=== PATIENT | female | born 1990 | race African-American/Black ===

== ENCOUNTER 2022-09-12 06:16 | Emergency (ER) | payer MEDICAID ==
[~2022-09-12] VITALS: Ht 154.9 cm; Wt 58.1 kg
[2022-09-12 07:07] LABS: BASOPHILS % 0.6 % (0.0-2.0); HEMATOCRIT. 40.1 % (36.0-48.0); HEMOGLOBIN. 13.3 g/dL (12.0-16.0); LYMPHOCYTES % 15.1 % (20.0-50.0); MEAN CORPUSCULAR HEMOGLOBIN 28.5 pg (28.0-32.0); MEAN CORPUSCULAR VOLUME 86.1 fL (81.0-99.0); MEAN PLATELET VOLUME 8.9 fl (7.4-10.4); MONOCYTES % 6.9 % (2.0-8.0); NEUTROPHILS % 75.4 % (40.0-76.0); PLATELET 273 x1000/uL (130-400); RED BLOOD CELL COUNT 4.66 mill/uL (4.2-5.4); RED CELL DISTRIBUTION WIDTH 14.1 % (11.6-14.6)
[2022-09-12 07:17] LABS: CHLORIDE 111 mEq/L (98-107)
[2022-09-12 07:27] LABS: HCG SCREEN POSITIVE
[2022-09-12 08:12] LABS: CLARITY URINE CLEAR (CLEAR); COLOR URINE YELLOW (YELLOW); KETONES URINE NEGATIVE (NEGATIVE); LEUKOCYTE ESTERASE URINE 2+ (NEGATIVE); NITRITE URINE POSITIVE (NEGATIVE); OCCULT BLOOD URINE TRACE (NEGATIVE); PH URINE 6.5 (4.5-8.0); PROTEIN URINE NEGATIVE (NEGATIVE)
[2022-09-12] MEDS ORDERED: CEPHALEXIN 250MG CAPSULE PO ONE (08:45)
[2022-09-12] MEDS ORDERED: CEPH500T MT (11:29)
[2022-09-12 11:43] VITALS: BP 144/92
== END 2022-09-12 11:49 | disposition home or self-care (01) ==
LOC: ER 06:16
DX: N30.90 Cystitis, unspecified without hematuria (principal)
CPT/HCPCS: 36415; 76830; 76856; 80053; 81003; 83690; 84702; 84703; 85025; 86850; 86900; 86901; 99284; Z7610

== ENCOUNTER 2022-09-14 10:53 | Emergency (ER) | payer MEDICAID ==
[~2022-09-14] VITALS: Ht 154.9 cm; Wt 68.0 kg
[~2022-09-14 10:53] MED LIST: CEPH500T MT
[2022-09-14 11:12] VITALS: BP 146/90
[2022-09-14 11:30] LABS: BASOPHILS % 0.9 % (0.0-2.0); EOSINOPHILS % 2.2 % (0.0-5.0); HEMOGLOBIN. 13.2 g/dL (12.0-16.0); LYMPHOCYTES % 23.9 % (20.0-50.0); MEAN CORPUSCULAR HEMOGLOBIN 28.9 pg (28.0-32.0); MEAN CORPUSCULAR VOLUME 85.6 fL (81.0-99.0); PLATELET 275 x1000/uL (130-400); RED BLOOD CELL COUNT 4.56 mill/uL (4.2-5.4); RED CELL DISTRIBUTION WIDTH 13.7 % (11.6-14.6)
[2022-09-14 11:40] LABS: CHLORIDE 111 mEq/L (98-107)
== END 2022-09-14 19:00 | disposition home or self-care (01) ==
LOC: ER 11:07
DX: N93.9 Abnormal uterine and vaginal bleeding, unspecified (principal)
CPT/HCPCS: 36415; 76801; 80053; 84702; 85025; 99284

== ENCOUNTER 2022-09-24 17:49 | Emergency (ER) | payer MEDICAID ==
[~2022-09-24] VITALS: Ht 154.9 cm; Wt 63.6 kg
[2022-09-24 19:21] LABS: BASOPHILS % 1.1 % (0.0-2.0); EOSINOPHILS % 2.6 % (0.0-5.0); HEMATOCRIT. 37.2 % (36.0-48.0); HEMOGLOBIN. 12.5 g/dL (12.0-16.0); LYMPHOCYTES % 27.4 % (20.0-50.0); MEAN CORPUSCULAR HEMOGLOBIN 28.7 pg (28.0-32.0); MEAN CORPUSCULAR VOLUME 85.6 fL (81.0-99.0); MEAN PLATELET VOLUME 8.9 fl (7.4-10.4); MONOCYTES % 8.7 % (2.0-8.0); NEUTROPHILS % 60.2 % (40.0-76.0); PLATELET 275 x1000/uL (130-400); RED BLOOD CELL COUNT 4.34 mill/uL (4.2-5.4); RED CELL DISTRIBUTION WIDTH 13.8 % (11.6-14.6)
[2022-09-24 19:30] LABS: CHLORIDE 110 mEq/L (98-107)
[2022-09-24 19:31] LABS: HCG SCREEN POSITIVE
[2022-09-24 19:38] LABS: CLARITY URINE TURBID (CLEAR); COLOR URINE YELLOW (YELLOW); KETONES URINE NEGATIVE (NEGATIVE); LEUKOCYTE ESTERASE URINE 3+ (NEGATIVE); NITRITE URINE NEGATIVE (NEGATIVE); OCCULT BLOOD URINE TRACE (NEGATIVE); PH URINE 7.5 (4.5-8.0); PROTEIN URINE TRACE (NEGATIVE); SPECIFIC GRAVITY URINE 1.014 (1.005-1.030)
[2022-09-25] MEDS ORDERED: CEFAZOLIN 1000MG PREMIX 50 ML IV ONE (01:45)
[2022-09-25 04:00] VITALS: BP 95/56
== END 2022-09-25 04:06 | disposition home or self-care (01) ==
LOC: ER 17:49
DX: O03.9 Complete or unspecified spontaneous abortion without complication (principal); O23.31 Infections of other parts of urinary tract in pregnancy, first trimester; Z3A.01 Less than 8 weeks gestation of pregnancy
CPT/HCPCS: 36415; 76801; 76817; 80053; 81003; 84702; 84703; 85025; 86850; 86900; 86901; 87086; 87186; 96365; 99291; J0690; Z7610

== ENCOUNTER 2024-03-07 00:52 | Emergency (ER) | payer MEDICAID ==
[~2024-03-07] VITALS: Ht 157.5 cm; Wt 64.0 kg
[~2024-03-07 00:52] MED LIST changes: -CEPH500T MT; +NITR-87 PO
[2024-03-07 00:58] VITALS: TEMP 98.5; O2SAT 100
[2024-03-07 01:06] VITALS: O2SAT 100
[2024-03-07 01:28] LABS: CLARITY URINE CLOUDY (CLEAR); COLOR URINE DARK YELLOW (YELLOW); GLUCOSE URINE NEGATIVE (NEGATIVE); KETONES URINE TRACE (NEGATIVE); LEUKOCYTE ESTERASE URINE 2+ (NEGATIVE); NITRITE URINE POSITIVE (NEGATIVE); OCCULT BLOOD URINE NEGATIVE (NEGATIVE); PH URINE 6.5 (4.5-8.0); PROTEIN URINE TRACE (NEGATIVE); SPECIFIC GRAVITY URINE 1.015 (1.005-1.030)
[2024-03-07 01:58] LABS: BASOPHILS % 0.9 % (0.0-2.0); EOSINOPHILS % 1.1 % (0.0-5.0); HEMATOCRIT. 29.1 % (36.0-48.0); HEMOGLOBIN. 9.3 g/dL (12.0-16.0); LYMPHOCYTES % 11.6 % (20.0-50.0); MEAN CORPUSCULAR HEMOGLOBIN 20.8 pg (28.0-32.0); MEAN CORPUSCULAR VOLUME 64.8 fL (81.0-99.0); MEAN PLATELET VOLUME 7.8 fl (7.4-10.4); NEUTROPHILS % 80.4 % (40.0-76.0); PLATELET 461 x1000/uL (130-400); RED BLOOD CELL COUNT 4.48 mill/uL (4.2-5.4); RED CELL DISTRIBUTION WIDTH 18.9 % (11.6-14.6); WHITE BLOOD COUNT 10.1 x1000/uL (4.5-11.0)
[2024-03-07] MEDS ORDERED: SULFAMETHOXAZOLE/TRIMETHOPRIM 800/160MG TABLET PO ONE (02:00)
[2024-03-07 02:02] LABS: CHLORIDE 108 mEq/L (98-107); POTASSIUM 3.4 mEq/L (3.5-5.1); SODIUM 140 mEq/L (136-145)
[2024-03-07 02:03] LABS: CARBON DIOXIDE 24 mEq/L (21-32)
[2024-03-07 02:04] LABS: CALCIUM 8.6 mg/dL (8.7-10.4)
[2024-03-07 02:07] LABS: RBC URINE 0-2 /hpf (0-2); SQUAMOUS EPITHELIAL CELL URINE FEW /lpf (RARE/1+); WBC URINE 25-50 /hpf (0-2)
[2024-03-07 02:08] LABS: BACTERIA URINE 4+
[2024-03-07 02:08] LABS: CREATININE 0.9 mg/dL (0.6-1.0); GLUCOSE 107 mg/dL (70-105)
[2024-03-07 02:09] LABS: UREA NITROGEN BLOOD 9 mg/dL (9-23)
[2024-03-07 02:10] LABS: ALANINE AMINOTRANSFERASE < 7 IU/L (10-49); ALBUMIN 4.2 g/dL (3.2-4.8); ASPARTATE AMINOTRANSFERASE 18 IU/L (<34)
[2024-03-07 02:11] LABS: BILIRUBIN TOTAL 0.3 mg/dL (0.1-1.0); PROTEIN TOTAL 6.9 g/dL (6.0-8.3)
[2024-03-07 02:13] LABS: DIFFERENTIAL COMMENT 1
[2024-03-07 02:23] VITALS: BP 130/94; PULSE 107; RESP 16
[2024-03-07] MEDS: KETOROLAC 30MG/ML VIAL IM STA (02:23)
[2024-03-07] MEDS: ONDANSETRON HCL 4MG/2ML INJ IM STA (02:23)
[2024-03-07] MEDS: SULFAMETHOXAZOLE/TRIMETHOPRIM 800/160MG TABLET PO SCH (03:50)
[2024-03-07] MEDS ORDERED: SULF1TAB48 MT (04:44)
[2024-03-07] MEDS ORDERED: IBUP-2029 MT (04:44)
== END 2024-03-07 05:07 | disposition home or self-care (01) ==
LOC: ER 00:52
DX: N39.0 Urinary tract infection, site not specified (principal); F12.10 Cannabis abuse, uncomplicated; Z88.0 Allergy status to penicillin
CPT/HCPCS: 80053; 81003; 81025; 83690; 85025; 87086; 87186; 87077; 36415; 74176; 96372; 99285; J1885; J2405; Z7610